=== PATIENT | male | born 1985 | race Caucasian/White ===

== ENCOUNTER 2023-12-06 20:15 | Emergency (ER) | payer BC, SELFPAY ==
[2023-12-06 20:23] VITALS: BP 188/74
--- NOTE | 2023-12-06 22:45 | ED.GENMED ---
History of Present Illness
General
Chief Complaint: Ear Problem
Time Seen by Provider: 12/06/23 22:25
Travel History
Have you had any contact with someone who has COVID-19?: No
Do you have any symptoms of coronavirus? Fever > 100 degrees, chills, cough, shortness of breath, sore throat, loss of taste or smell, muscle aches, or headache?: No
History of Present Illness
History of Present Illness:
38-year-old male presents to the emergency department due to a foreign body in left ear. States he was cleaning his ears with a Q-tip when the Q-tip cotton ending fell off
Review of Systems
Review of Systems
Allergies reviewed?: Yes
All Other Systems: ROS reviewed and negative except as documented in HPI and ROS
Phy Exam
Physical Exam
Physical Exam:
GEN: Well appearing, NAD, WDWN
HEENT: Oral mucosa moist, no scleral icterus, cotton in the left tympanic membrane noted
Cardiac: Regular rate
Lung: No respiratory distress, no tachypnea
MSK: No gross deformity or injuries
Skin: Good color, no pallor or jaundice, no rashes
Neuro: AO x3, moves all extremities freely
Psych: Calm, cooperative
Course
Vital Signs
Initial and Last Documented VS:
Initial Vital Signs
Temp Pulse Resp BP Pulse Ox
98.3 F 78 20 188/74 99
12/06/23 20:23 12/06/23 20:23 12/06/23 20:23 12/06/23 20:23 12/06/23 20:23
Last Documented Vital Signs
Temp Pulse Resp BP Pulse Ox
98.3 F 78 20 188/74 99
12/06/23 20:23 12/06/23 20:23 12/06/23 20:23 12/06/23 20:23 12/06/23 20:23
MDM/Problems Addressed
MDM/Problems Addressed:
Cotton removed with alligator forceps, post removal inspection of the left external auditory canal reveals scant abrasion with no active bleeding, intact tympanic membrane with no erythema
*Critical Care Note
Total Time (30-74mins, 75-104mins- exclusive of procedures): Not Applicable
ED Attending Note
-
Portions of this chart may have been created with voice recognition software.� Occasional wrong word or��sound alike� substitutions may have occurred due to the inherent limitations of voice recognition software.
Discharge Plan
Departure
Patient Disposition: Home (Routine Discharge)
Patient with high blood pressure during this ER visit?: No
Discharge Problem:
Acute foreign body of left ear
Referrals:
Errol Landrum, DO [Family Provider] -
Interventions
Interventions:
*Risk Screen - Suicide Last Done: 12/06/23 20:23
*General Assessment Last Done: 12/06/23 20:23
*Neglect/Abuse Screening Last Done: 12/06/23 20:23
ED- Fall Risk Assessment Last Done: 12/06/23 22:42
*ED COVID-19 Vaccine History Last Done: 12/06/23 22:42
*Nursing Disposition Last Done: 12/06/23 22:42
Discharge Date and Time
Discharge Date/Time: 12/06/23 22:51
Print Language: WOLOF
== END 2023-12-06 22:51 | disposition home or self-care (01) ==
LOC: EMR 20:15
PROVIDERS: EMERGENCY PHYSICIAN Emergency Medicine; FAMILY PHYSICIAN Family Medicine
DX: T16.2XXA Foreign body in left ear, initial encounter (principal); W44.8XXA Other foreign body entering into or through a natural orifice, initial encounter
CPT/HCPCS: 99282

== ENCOUNTER → 2025-04-11 09:27 | Outpatient (REF) | payer BC, SELFPAY | LOC: DHSLP 09:27 | PROVIDERS: ATTENDING PHYSICIAN Internal Medicine; FAMILY PHYSICIAN Family Medicine | DX: G47.33 Obstructive sleep apnea (adult) (pediatric) (principal) | CPT/HCPCS: 95810 ==